=== PATIENT | male | born 1960 | race Hispanic/Latino ===

== ENCOUNTER 2023-08-04 15:01 | Outpatient (CLI) | payer BC, SELFPAY ==
--- NOTE | 2023-08-04 15:47 | ECG_ITS ---
Measurements Intervals Peak Rate: 67 P: 35 RI: 145 QRS: 70 QRSD: 112 T: -1 QT: 400 QTc: 424 Interpretive Statements SINUS RHYTHM INTRAVENTRICULAR CONDUCTION DELAY Electronically Signed On 08-05-2023 12:26:40 DEPARTMENT STORE MANAGER by Antony Gotti M.D.
[2023-08-04 16:43] LABS: Alanine Aminotransferase 34 U/L (6-50); Albumin Level 4.3 g/dL (3.5-5.1); Alkaline Phosphatase 131 U/L (38-126); Anion Gap 7 mmol/L (8-16); Aspartate Amino Transferase 43 U/L (17-59); Bilirubin,Total 1.4 mg/dL (0.2-1.3); Blood Urea Nitrogen 15 mg/dL (9-20); Calcium 9.1 mg/dL (8.4-10.2); Carbon Dioxide 26 mmol/L (22-30); Chloride 104 mmol/L (98-107); Estimated Glomerular Filt Rate > 60; Glucose 230 mg/dL (65-110); Potassium 4.1 mmol/L (3.4-5.0); Sodium 137 mmol/L (137-145)
== END 2023-08-04 15:02 | disposition home or self-care (01) ==
DX: M65.341 Trigger finger, right ring finger (principal); G56.01 Carpal tunnel syndrome, right upper limb; M65.4 Radial styloid tenosynovitis [de Quervain]; I45.9 Conduction disorder, unspecified
CPT/HCPCS: 36415; 80053; 93005